=== PATIENT | male | born 1960 | race Hispanic/Latino ===

== ENCOUNTER 2021-11-24 17:35 | Emergency (ER) | payer BC ==
[~2021-11-24] VITALS: Ht 172.7 cm; Wt 83.9 kg
[2021-11-24] MEDS ORDERED: ONDANSETRON 4MG INJ IVP ONE (18:00)
[2021-11-24] MEDS ORDERED: 0.9%NACL 1000ML 684 ML IV ONE (18:00)
[2021-11-24] MEDS ORDERED: MECLIZINE HCL 25 MG TABLET PO ONE (18:00)
[2021-11-24 18:25] LABS: BASOPHILS % (AUTO) 0.3 % (0.0-5.0); EOSINOPHILS % (AUTO) 0.4 % (0.0-8.0); HEMATOCRIT 43.5 % (42-54); LYMPHOCYTES % (AUTO) 19.6 % (21.0-51.0); MEAN CORPUSCULAR HEMOGLOBIN 30.1 pg (27.0-33.0); MEAN CORPUSCULAR VOLUME 88.4 fL (79-99); MONOCYTES % (AUTO) 7.6 % (3.0-13.0); NEUTROPHILS % (AUTO) 71.4 % (40.0-77.0); PLATELET COUNT (AUTO) 220 K/uL (130-400); RED BLOOD CELL COUNT(AUTO) 4.92 MIL/uL (4.50-6.20); RED CELL DISTRIBUTION WIDTH 12.4 % (11.0-15.5); WHITE BLOOD COUNT (AUTO) 9.4 K/uL (4.8-10.8)
[2021-11-24 18:35] LABS: POTASSIUM 4.2 mmol/L (3.5-5.1)
[2021-11-24 18:40] LABS: ALBUMIN 4.3 g/dL (3.5-5.0); BILIRUBIN,TOTAL 0.3 mg/dL (0.2-1.0); TOTAL PROTEIN, SERUM 7.9 g/dL (6.0-8.3)
[2021-11-24 19:07] VITALS: BP 131/80
[2021-11-24 20:04] LABS: APPEARANCE,URINE Clear (CLEAR); BILIRUBIN,URINE Negative (NEGATIVE); COLOR,URINE Yellow (YELLOW); GLUCOSE, URINE (UA) Negative (NEGATIVE); KETONES,URINE Negative (NEGATIVE); LEUKOCYTE ESTERASE ,URINE Trace (NEGATIVE); NITRATE,URINE Negative (NEGATIVE); OCCULT BLOOD,URINE Negative (NEGATIVE); PROTEIN,URINE Negative (NEGATIVE); UROBILINOGEN,URINE 0.2 mg/dL (0.2-1.0)
[2021-11-24 20:10] LABS: BACTERIA,URINE Few /HPF (None Seen); RBC,URINE 0-1 /HPF (0-1)
[2021-11-24 20:11] LABS: AMORPHOUS SEDIMENT,UR Rare /LPF (None Seen); MUCUS,URINE Rare LPF (None Seen); SQUAMOUS EPITHELIAL CELL,UR Rare /HPF (0-2)
[2021-11-24] MEDS ORDERED: METO10TA41 PO (20:17)
[2021-11-24] MEDS ORDERED: MECL-226 PO (20:17)
[2021-11-24] MEDS ORDERED: ONDA4TAB10 PO (20:17)
== END 2021-11-24 20:42 | disposition home or self-care (01) ==
LOC: EDH 17:35
DX: H81.12 Benign paroxysmal vertigo, left ear (principal); R11.2 Nausea with vomiting, unspecified; I10 Essential (primary) hypertension; E78.00 Pure hypercholesterolemia, unspecified; Z79.899 Other long term (current) drug therapy
CPT/HCPCS: 36415; 70450; 80053; 81001; 85025; 96361; 96374; 99284; J2405; J7030